=== PATIENT | male | born 1935 | race African-American/Black ===

== ENCOUNTER 2019-11-16 20:24 | Emergency (ER) | payer MEDICARE, OTHER ==
[~2019-11-16] VITALS: Ht 172.7 cm; Wt 71.5 kg
[2019-11-16] MEDS ORDERED: FUROSEMIDE 40MG TABLET PO ONE (23:45)
[2019-11-17 00:26] VITALS: BP 162/69
== END 2019-11-17 00:43 | disposition home or self-care (01) ==
LOC: ER 20:24
DX: I11.0 Hypertensive heart disease with heart failure (principal); I50.9 Heart failure, unspecified; R06.02 Shortness of breath; N40.0 Benign prostatic hyperplasia without lower urinary tract symptoms; F03.90 Unspecified dementia, unspecified severity, without behavioral disturbance, psychotic disturbance, mood disturbance, and anxiety
CPT/HCPCS: 99283

== ENCOUNTER 2019-11-17 11:16 | Emergency (ER) | payer MEDICARE, OTHER ==
[~2019-11-17] VITALS: Ht 172.7 cm; Wt 69.0 kg
[2019-11-17 13:18] LABS: CLARITY URINE CLEAR (CLEAR); COLOR URINE RED (YELLOW); KETONES URINE NEGATIVE (NEGATIVE); LEUKOCYTE ESTERASE URINE TRACE (NEGATIVE); NITRITE URINE NEGATIVE (NEGATIVE); OCCULT BLOOD URINE 3+ (NEGATIVE); PH URINE 6.5 (4.5-8.0); PROTEIN URINE 1+ (NEGATIVE); SPECIFIC GRAVITY URINE 1.011 (1.005-1.030); UROBILINOGEN URINE 0.2 E.U./dL (0.2-1.0)
[2019-11-17 14:47] LABS: HEMATOCRIT. 35.6 % (42.0-52.0); MEAN CORPUSCULAR HEMOGLOBIN 29.6 pg (28.0-32.0); MEAN CORPUSCULAR VOLUME 88.2 fL (80.0-94.0); PLATELET 149 x1000/uL (130-400); RED BLOOD CELL COUNT 4.04 mill/uL (4.7-6.1); RED CELL DISTRIBUTION WIDTH 13.5 % (11.6-14.6)
[2019-11-17 14:54] LABS: CHLORIDE 109 mEq/L (98-107)
[2019-11-17 15:01] LABS: PLATELET ESTIMATE NORMAL
[2019-11-17 17:05] VITALS: BP 184/95
== END 2019-11-17 17:10 | disposition home or self-care (01) ==
LOC: ER 12:15
DX: R31.9 Hematuria, unspecified (principal); N40.1 Benign prostatic hyperplasia with lower urinary tract symptoms; F03.90 Unspecified dementia, unspecified severity, without behavioral disturbance, psychotic disturbance, mood disturbance, and anxiety; I11.0 Hypertensive heart disease with heart failure; I50.9 Heart failure, unspecified
CPT/HCPCS: 36415; 76770; 80053; 81003; 85025; 99284